=== PATIENT | male | born 1995 | race Caucasian/White ===

== ENCOUNTER 2016-10-23 13:26 | Emergency (ER) | payer OTHER ==
[2016-10-23 13:49] VITALS: RESP 18
[2016-10-23] MEDS ORDERED: SODIUM CHLORIDE 0.9% 1,000 ML IV STA (14:33)
--- NOTE | 2016-10-23 14:35 | ED ---
General Adult HPI - General Chief complaint: Abdominal Pain Stated complaint: Abd Pain Time Seen by Provider: 10/23/16 14:27 Source: patient, RN notes reviewed Mode of arrival: ambulatory Limitations: no limitations - History of Present Illness Initial comments: Patient 21-year-old male who presents emergency room today with a chief complaint of abdominal pain. He does admit that he felt some discomfort yesterday but increased discomfort today. He describes it as a "strange" type feeling to the top of his abdomen that radiates down. He states he reminds him of when he was seen once and he had elevated liver enzymes. He states at that time he had taken Tylenol and was drinking alcohol. Patient states he has not taken any Tylenol recent. He denies any recent drinking. He denies any other complaints or symptoms. Patient denies any recent fever, chills, shortness of breath, chest pain, back pain, nausea or vomiting, numbness or tingling, dysuria or hematuria, constipation or diarrhea, headaches or visual changes, or any other complaints. - Related Data Previous Rx's Medication Instructions Recorded Ondansetron Odt [Zofran ODT] 4 mg PO Q8HR PRN #20 tab 10/23/16 Allergies Allergy/AdvReac Type Severity Reaction Status Date / Time No Known Allergies Allergy Verified 10/23/16 14:53 Review of Systems ROS Statement: Those systems with pertinent positive or pertinent negative responses have been documented in the HPI. ROS Other: All systems not noted in ROS Statement are negative. Past Medical History Past Medical History: No Reported History Additional Past Medical History / Comment(s): Plantar fibroma History of Any Multi-Drug Resistant Organisms: None Reported Past Surgical History: Appendectomy, Orthopedic Surgery Additional Past Surgical History / Comment(s): testicular surgery Past Anesthesia/Blood Transfusion Reactions: No Reported Reaction Past Psychological History: Anxiety, Bipolar, Depression Smoking Status: Current every day smoker Past Alcohol Use History: Occasional Additional Past Alcohol Use History / Comment(s): Patient is a smoker one pack per day for 1 year. He states he drinks 2 beers per week. Past Drug Use History: Marijuana Additional Drug Use History / Comment(s): States "i used to drink alot and smoke marijuana but I dont anymore - Past Family History Father Additional Family Medical History / Comment(s): Father is alive at age 58 with history of kidney stones and low blood sugar Mother Family Medical History: Unable to Obtain Additional Family Medical History / Comment(s): Patient does not want to talk about his mother. Patient has 3 brothers and 4 sisters with no major medical problems. General Exam - General Exam Comments Initial Comments: General: The patient is awake and alert, in no distress, and does not appear acutely ill. Eye: Pupils are equal, round and reactive to light, extra-ocular movements are intact. No nystagmus. There is normal conjunctiva bilaterally. No signs of icterus. Ears, nose, mouth and throat: There are moist mucous membranes and no oral lesions. Neck: The neck is supple, there is no tenderness or JVD. Cardiovascular: There is a regular rate and rhythm. No murmur, rub or gallop is appreciated. Respiratory: Lungs are clear to auscultation, respirations are non-labored, breath sounds are equal. No wheezes, stridor, rales, or rhonchi. Gastrointestinal: Soft, non-distended, non-tender abdomen without masses or organomegaly noted. There is no rebound or guarding present. No CVA tenderness. Bowel sounds are unremarkable. Musculoskeletal: Normal ROM, no tenderness. Strength 5/5. Sensation intact. Pulses equal bilaterally 2+. Neurological: A&O x 3. CN II-XII intact, There are no obvious motor or sensory deficits. Coordination appears grossly intact. Speech is normal. Skin: Skin is warm and dry and no rashes or lesions are noted. Psychiatric: Cooperative, appropriate mood & affect, normal judgment. Limitations: no limitations Course Vital Signs 10/23/16 13:46 Temperature 98.0 F Pulse Rate 59 L Respiratory 18 Rate Blood Pressure 124/53 O2 Sat by Pulse 98 Oximetry Medical Decision Making - Medical Decision Making Patient reexamined at this time shows no signs of distress. Patient labs been reviewed and are unremarkable is resting comfortable in the stretcher with no complaints at this time. A be discharged home given a prescription for nausea to use for any symptoms. Advised return for any other concerns. - Lab Data Result diagrams: 10/23/16 15:03 10/23/16 15:03 Lab Results 10/23/16 10/23/16 10/23/16 Range/Units 15:03 15:03 15:26 WBC 6.6 (3.8-10.6) k/uL RBC 4.90 (4.30-5.90) m/uL Hgb 15.4 (13.0-17.5) gm/dL Hct 45.8 (39.0-53.0) % MCV 93.4 (80.0-100.0) fL MCH 31.4 (25.0-35.0) pg MCHC 33.6 (31.0-37.0) g/dL RDW 13.7 (11.5-15.5) % Plt Count 179 (150-450) k/uL Neutrophils % 58 % Lymphocytes % 31 % Monocytes % 6 % Eosinophils % 2 % Basophils % 1 % Neutrophils # 3.9 (1.3-7.7) k/uL Lymphocytes # 2.0 (1.0-4.8) k/uL Monocytes # 0.4 (0-1.0) k/uL Eosinophils # 0.2 (0-0.7) k/uL Basophils # 0.0 (0-0.2) k/uL Sodium 143 (137-145) mmol/L Potassium 4.3 (3.5-5.1) mmol/L Chloride 108 H (98-107) mmol/L Carbon Dioxide 25 (22-30) mmol/L Anion Gap 10 mmol/L BUN 18 (9-20) mg/dL Creatinine 0.76 (0.66-1.25) mg/dL Est GFR (MDRD) Af Amer >60 (>60 ml/min/1.73 sqM) Est GFR (MDRD) Non-Af >60 (>60 ml/min/1.73 sqM) Glucose 101 H (74-99) mg/dL Calcium 9.4 (8.4-10.2) mg/dL Total Bilirubin 0.6 (0.2-1.3) mg/dL AST 19 (17-59) U/L ALT 32 (21-72) U/L Alkaline Phosphatase 64 (38-126) U/L Total Protein 7.4 (6.3-8.2) g/dL Albumin 4.4 (3.5-5.0) g/dL Amylase 62 (30-110) U/L Lipase 30 (23-300) U/L Urine Color Yellow Urine Appearance Clear (Clear) Urine pH 6.5 (5.0-8.0) Ur Specific [place] 1.026 (1.001-1.035) Urine Protein Trace H (Negative) Urine Glucose (UA) Negative (Negative) Urine Ketones Negative (Negative) Urine Blood Negative (Negative) Urine Nitrite Negative (Negative) Urine Bilirubin Negative (Negative) Urine Urobilinogen <2.0 (<2.0) mg/dL Ur Leukocyte Esterase Negative (Negative) Disposition Clinical Impression: Abdominal pain Disposition: HOME SELF-CARE Condition: Poor Instructions: Abdominal Pain (ED) Additional Instructions: Please use medication as discussed. Please follow-up with family doctor in the next 2 days of symptoms have not improved. Please return to emergency room if the symptoms increase or worsen or for any other concerns. Prescriptions: Ondansetron Odt [Zofran ODT] 4 mg PO Q8HR PRN #20 tab PRN Reason: Nausea Referrals: None,Stated [Primary Care Provider] - 1-2 days Maria G Saavedra MD [STAFF PHYSICIAN] - 1-2 days Time of Disposition: 15:54
[2016-10-23 15:21] LABS: Basophils % (A) 1 %; CH 32.2; CHCM 34.6; Eosinophils # (A) 0.2 k/uL (0-0.7); Eosinophils % (A) 2 %; HCT 45.8 % (39.0-53.0); HDW 2.74; HGB 15.4 gm/dL (13.0-17.5); Luc # (Auto) 0.14; Luc % (Auto) 2; Lymphocytes % (A) 31 %; MCH 31.4 pg (25.0-35.0); MCHC 33.6 g/dL (31.0-37.0); MCV 93.4 fL (80.0-100.0); Mean Platelet Volume 8.3; Monocytes # (A) 0.4 k/uL (0-1.0); Monocytes % (A) 6 %; Neutrophils # (A) 3.9 k/uL (1.3-7.7); Neutrophils % (A) 58 %; RDW 13.7 % (11.5-15.5); WBC 6.6 k/uL (3.8-10.6); WBC (Perox) 6.33
[2016-10-23 15:34] LABS: ALT 32 U/L (21-72); AST 19 U/L (17-59); Alkaline Phosphatase 64 U/L (38-126); Amylase 62 U/L (30-110); Anion Gap 10 mmol/L; Blood Urea Nitrogen 18 mg/dL (9-20); Calcium 9.4 mg/dL (8.4-10.2); Carbon Dioxide 25 mmol/L (22-30); Chloride 108 mmol/L (98-107); Glucose 101 mg/dL (74-99); Non-African American GFR(MDRD) >60 (>60 ml/min/1.73 sqM); Potassium 4.3 mmol/L (3.5-5.1); Sodium 143 mmol/L (137-145); Total Bilirubin 0.6 mg/dL (0.2-1.3); Total Protein 7.4 g/dL (6.3-8.2)
[2016-10-23 15:50] LABS: Appearance,Urine Clear (Clear); Bilirubin,Urine Negative (Negative); Glucose,Urine (UA) Negative (Negative); Ketones,Urine Negative (Negative); Leukocyte Esterase,Urine Negative (Negative); Nitrite,Urine Negative (Negative); PH, Urine 6.5 (5.0-8.0); Protein,Urine Trace (Negative); Specific Gravity,Urine 1.026 (1.001-1.035); UA Billing (MACRO vs. MICRO) CHEM; Urobilinogen,Urine <2.0 mg/dL (<2.0)
[2016-10-23 16:17] VITALS: BP 137/65; PULSE 65; TEMP 98
== END 2016-10-23 16:18 | disposition home or self-care (01) ==
LOC: EC 13:26
DX: R10.9 Unspecified abdominal pain (principal); R11.0 Nausea; F17.200 Nicotine dependence, unspecified, uncomplicated; Z90.49 Acquired absence of other specified parts of digestive tract
CPT/HCPCS: 36415; 80053; 81003; 82150; 83690; 85025; 96360; 99283

== ENCOUNTER 2018-01-26 00:49 | Emergency (ER) | payer OTHER ==
[2018-01-26 00:55] VITALS: BP 128/77; PULSE 75; RESP 16; TEMP 98
[2018-01-26] MEDS ORDERED: PROPARACAINE 0.5% OPHTH DROPS 15 ML BTL BOTH EYES STA (01:10)
[2018-01-26] MEDS ORDERED: ERYTHROMYCIN 5 MG/GM OPHTH OINT 3.5 GM TUBE LEFT EYE STA (01:35)
--- NOTE | 2018-01-26 01:44 | ED ---
Eye Problem HPI - General Chief complaint: Eye Problems Stated complaint: Foreign body in eye Time Seen by Provider: 01/26/18 01:10 Source: patient, RN notes reviewed, old records reviewed Mode of arrival: ambulatory Limitations: no limitations - History of Present Illness Initial comments: Patient is a 23 year old male with metal foreign body within L eye. 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 He reports he noticed irriation while trying to sleep tonight. He has attemptoed to flush his eye. Patient has had his TDAP, denies any other complaint. - Related Data Previous Rx's Medication Instructions Recorded Ondansetron Odt [Zofran ODT] 4 mg PO Q8HR PRN #20 tab 10/23/16 Allergies Allergy/AdvReac Type Severity Reaction Status Date / Time No Known Allergies Allergy Verified 01/26/18 00:55 Review of Systems ROS Statement: Those systems with pertinent positive or pertinent negative responses have been documented in the HPI. ROS Other: All systems not noted in ROS Statement are negative. Past Medical History Past Medical History: No Reported History Additional Past Medical History / Comment(s): Plantar fibroma History of Any Multi-Drug Resistant Organisms: None Reported Past Surgical History: Appendectomy, Orthopedic Surgery Additional Past Surgical History / Comment(s): testicular surgery Past Anesthesia/Blood Transfusion Reactions: No Reported Reaction Past Psychological History: Anxiety, Bipolar, Depression Smoking Status: Current some day smoker Past Alcohol Use History: Occasional Past Drug Use History: Marijuana - Past Family History Father Additional Family Medical History / Comment(s): Father is alive at age 58 with history of kidney stones and low blood sugar Mother Family Medical History: Unable to Obtain Additional Family Medical History / Comment(s): Patient does not want to talk about his mother. Patient has 3 brothers and 4 sisters with no major medical problems. General Exam - General Exam Comments Initial Comments: Well appearing 23 year old male, no distress. Limitations: no limitations General appearance: alert, in no apparent distress Head exam: Present: atraumatic, normocephalic, normal inspection Eye exam: Present: PERRL, EOMI, conjunctival injection (L eye, evidence of metalic foreign body at 11 oclock position. ). Absent: normal appearance, scleral icterus, periorbital swelling ENT exam: Present: normal exam, mucous membranes moist Neck exam: Present: normal inspection. Absent: tenderness, meningismus, lymphadenopathy Respiratory exam: Present: normal lung sounds bilaterally. Absent: respiratory distress, wheezes, rales, rhonchi, stridor Cardiovascular Exam: Present: regular rate, normal rhythm, normal heart sounds. Absent: systolic murmur, diastolic murmur, rubs, gallop, clicks GI/Abdominal exam: Present: soft, normal bowel sounds. Absent: distended, tenderness, guarding, rebound, rigid Extremities exam: Present: normal inspection, full ROM, normal capillary refill. Absent: tenderness, pedal edema, joint swelling, calf tenderness Back exam: Present: normal inspection Neurological exam: Present: alert, oriented X3, CN II-XII intact Psychiatric exam: Present: normal affect, normal mood Course Vital Signs 01/26/18 00:53 Temperature 98 F Pulse Rate 75 Respiratory 16 Rate Blood Pressure 128/77 O2 Sat by Pulse 98 Oximetry Medical Decision Making - Medical Decision Making 23 year old male presetns with metal foreign body in L eye. Visual acuity intact. Using proparicaine, Fluorescein and Leon lamp, foreign body is easily identified at 11 o'clock position. I used an sharee brush and removed foreign body and surrounding rust ring. Discussed using antibiotic ointment for eye, and ophthalmology referral. All question answered and return parameter discussed. Disposition Clinical Impression: Foreign body of left eye Disposition: HOME SELF-CARE Condition: Good Instructions: Eye Foreign Body (ED) Additional Instructions: Patient is advised to put the eye ointment and every 4 hours in the eye. Return to emergency department if any alarming signs or symptoms occur. Is patient prescribed a controlled substance at d/c from ED?: No Referrals: None,Stated [Primary Care Provider] - 1-2 days Yazan Bae MD [STAFF PHYSICIAN] - 1-2 days Time of Disposition: 01:43
== END 2018-01-26 02:02 | disposition home or self-care (01) ==
LOC: EC 00:49
DX: T15.92XA Foreign body on external eye, part unspecified, left eye, initial encounter (principal); F17.200 Nicotine dependence, unspecified, uncomplicated
CPT/HCPCS: 65220; 99283

== ENCOUNTER 2019-11-30 16:29 | Emergency (ER) | payer OTHER ==
[2019-11-30] MEDS ORDERED: SODIUM CHLORIDE 0.9% 1,000 ML IV STA (16:37)
--- NOTE | 2019-11-30 16:37 | ED ---
Overdose HPI - General Chief Complaint: Overdose Stated Complaint: overdose Source: patient, RN notes reviewed, old records reviewed Mode of arrival: ambulatory Limitations: no limitations - History of Present Illness Initial Comments: This is a 24-year-old male presenting overdose, patient states he was drinking some alcohol 2 days ago and took a Tylenol overdose he believes 10 pills. Unsure of milligrams. At this time patient aside from depression still feeling suicidal denying any complaints no GI upset no nausea vomiting. No other complaints no fevers or diarrhea MD Complaint: intentional overdose -: days(s) Intent: suicide attempt How Overdose Was Discovered: other (Presents to emergency room for evaluation now) Context: Intentional Overdose: drug/ETOH problems Associated Symptoms: depression Treatments Prior to Arrival: none - Related Data Home Medications Medication Instructions Recorded Confirmed No Known Home Medications 11/30/19 11/30/19 Allergies Allergy/AdvReac Type Severity Reaction Status Date / Time No Known Allergies Allergy Verified 11/30/19 18:13 Review of Systems ROS Statement: Those systems with pertinent positive or pertinent negative responses have been documented in the HPI. ROS Other: All systems not noted in ROS Statement are negative. Past Medical History Past Medical History: No Reported History Additional Past Medical History / Comment(s): Plantar fibroma History of Any Multi-Drug Resistant Organisms: None Reported Past Surgical History: Appendectomy, Orthopedic Surgery Additional Past Surgical History / Comment(s): testicular surgery Past Anesthesia/Blood Transfusion Reactions: No Reported Reaction Past Psychological History: Anxiety, Bipolar, Depression Smoking Status: Current every day smoker Past Alcohol Use History: Occasional Past Drug Use History: Marijuana - Past Family History Father Additional Family Medical History / Comment(s): Father is alive at age 58 with history of kidney stones and low blood sugar Mother Family Medical History: Unable to Obtain Additional Family Medical History / Comment(s): Patient does not want to talk about his mother. Patient has 3 brothers and 4 sisters with no major medical pr oblems. General Exam Limitations: no limitations General appearance: alert, in no apparent distress Head exam: Present: atraumatic, normocephalic, normal inspection Eye exam: Present: normal appearance, PERRL, EOMI. Absent: scleral icterus, conjunctival injection, periorbital swelling ENT exam: Present: normal exam, mucous membranes moist Neck exam: Present: normal inspection. Absent: tenderness, meningismus, lymphadenopathy Respiratory exam: Present: normal lung sounds bilaterally. Absent: respiratory distress, wheezes, rales, rhonchi, stridor Cardiovascular Exam: Present: regular rate, normal rhythm, normal heart sounds. Absent: systolic murmur, diastolic murmur, rubs, gallop, clicks GI/Abdominal exam: Present: soft, normal bowel sounds. Absent: distended, tenderness, guarding, rebound, rigid Extremities exam: Present: normal inspection, full ROM, normal capillary refill. Absent: tenderness, pedal edema, joint swelling, calf tenderness Back exam: Present: normal inspection Neurological exam: Present: alert, oriented X3, CN II-XII intact Psychiatric exam: Present: normal affect, normal mood Skin exam: Present: warm, dry, intact, normal color. Absent: rash Course Vital Signs 11/30/19 11/30/19 11/30/19 16:32 19:55 22:17 Temperature 97.9 F 98.2 F 98.1 F Pulse Rate 76 68 60 Respiratory 18 18 16 Rate Blood Pressure 120/85 142/77 131/78 O2 Sat by Pulse 97 98 99 Oximetry - Reevaluation(s) Reevaluation #1: 11/30/19 18:02 Medical records reviewed Medical Decision Making - Medical Decision Making Erwin male DF for evaluation of psychiatric illness and possible intentional versus accidental overdose. No acute overdose found here in the ER, patient not currently homicidal and suicidal will follow-up on an outpatient basis with [facility] - Lab Data Result diagrams: 11/30/19 17:08 11/30/19 17:08 Lab Results 11/30/19 11/30/19 11/30/19 Range/Units 16:58 17:08 17:08 WBC 9.6 (3.8-10.6) k/uL RBC 5.03 (4.30-5.90) m/uL Hgb 15.8 (13.0-17.5) gm/dL Hct 46.4 (39.0-53.0) % MCV 92.2 (80.0-100.0) fL MCH 31.4 (25.0-35.0) pg MCHC 34.1 (31.0-37.0) g/dL RDW 13.3 (11.5-15.5) % Plt Count 218 (150-450) k/uL Neutrophils % 68 % Lymphocytes % 25 % Monocytes % 4 % Eosinophils % 2 % Basophils % 0 % Neutrophils # 6.5 (1.3-7.7) k/uL Lymphocytes # 2.4 (1.0-4.8) k/uL Monocytes # 0.4 (0-1.0) k/uL Eosinophils # 0.2 (0-0.7) k/uL Basophils # 0.0 (0-0.2) k/uL PT (9.0-12.0) sec INR (<1.2) Sodium 141 (137-145) mmol/L Potassium 4.6 (3.5-5.1) mmol/L Chloride 109 H (98-107) mmol/L Carbon Dioxide 24 (22-30) mmol/L Anion Gap 8 mmol/L BUN 12 (9-20) mg/dL Creatinine 0.70 (0.66-1.25) mg/dL Est GFR (CKD-EPI)AfAm >90 (>60 ml/min/1.73 sqM) Est GFR (CKD-EPI)NonAf >90 (>60 ml/min/1.73 sqM) Glucose 95 (74-99) mg/dL Plasma Lactic Acid Karl (0.7-2.0) mmol/L Calcium 9.7 (8.4-10.2) mg/dL Total Bilirubin 1.0 (0.2-1.3) mg/dL AST 29 (17-59) U/L ALT 35 (4-49) U/L Alkaline Phosphatase 67 (38-126) U/L Creatine Kinase 40 L (55-170) U/L Total Protein 7.1 (6.3-8.2) g/dL Albumin 4.5 (3.5-5.0) g/dL Salicylates <1.0 mg/dL Urine Opiates Screen Not Detected (NotDetected) Ur Oxycodone Screen Not Detected (NotDetected) Urine Methadone Screen Not Detected (NotDetected) Ur Propoxyphene Screen Not Detected (NotDetected) Acetaminophen <10.0 ug/mL Ur Barbiturates Screen Not Detected (NotDetected) U Tricyclic Antidepress Not Detected (NotDetected) Ur Phencyclidine Scrn Not Detected (NotDetected) Ur Amphetamines Screen Not Detected (NotDetected) U Methamphetamines Scrn Not Detected (NotDetected) U Benzodiazepines Scrn Not Detected (NotDetected) Urine Cocaine Screen Not Detected (NotDetected) U Marijuana (THC) Screen Detected H (NotDetected) Serum Alcohol <10 mg/dL 11/30/19 11/30/19 Range/Units 17:08 18:43 WBC (3.8-10.6) k/uL RBC (4.30-5.90) m/uL Hgb (13.0-17.5) gm/dL Hct (39.0-53.0) % MCV (80.0-100.0) fL MCH (25.0-35.0) pg MCHC (31.0-37.0) g/dL RDW (11.5-15.5) % Plt Count (150-450) k/uL Neutrophils % % Lymphocytes % % Monocytes % % Eosinophils % % Basophils % % Neutrophils # (1.3-7.7) k/uL Lymphocytes # (1.0-4.8) k/uL Monocytes # (0-1.0) k/uL Eosinophils # (0-0.7) k/uL Basophils # (0-0.2) k/uL PT 11.3 (9.0-12.0) sec INR 1.1 (<1.2) Sodium (137-145) mmol/L Potassium (3.5-5.1) mmol/L Chloride (98-107) mmol/L Carbon Dioxide (22-30) mmol/L Anion Gap mmol/L BUN (9-20) mg/dL Creatinine (0.66-1.25) mg/dL Est GFR (CKD-EPI)AfAm (>60 ml/min/1.73 sqM) Est GFR (CKD-EPI)NonAf (>60 ml/min/1.73 sqM) Glucose (74-99) mg/dL Plasma Lactic Acid Karl 0.7 (0.7-2.0) mmol/L Calcium (8.4-10.2) mg/dL Total Bilirubin (0.2-1.3) mg/dL AST (17-59) U/L ALT (4-49) U/L Alkaline Phosphatase (38-126) U/L Creatine Kinase (55-170) U/L Total Protein (6.3-8.2) g/dL Albumin (3.5-5.0) g/dL Salicylates mg/dL Urine Opiates Screen (NotDetected) Ur Oxycodone Screen (NotDetected) Urine Methadone Screen (NotDetected) Ur Propoxyphene Screen (NotDetected) Acetaminophen ug/mL Ur Barbiturates Screen (NotDetected) U Tricyclic Antidepress (NotDetected) Ur Phencyclidine Scrn (NotDetected) Ur Amphetamines Screen (NotDetected) U Methamphetamines Scrn (NotDetected) U Benzodiazepines Scrn (NotDetected) Urine Cocaine Screen (NotDetected) U Marijuana (THC) Screen (NotDetected) Serum Alcohol mg/dL - EKG Data -: EKG Interpreted by Me (EKG shows sinus rhythm 71 [place] 134 QRS 86 QTC 406) Disposition Clinical Impression: Accidental drug overdose Disposition: HOME SELF-CARE Condition: Good Instructions (If sedation given, give patient instructions): Adult Overdose (ED) Is patient prescribed a controlled substance at d/c from ED?: No Referrals: None,Stated [Primary Care Provider] - 1-2 days
[2019-11-30 17:12] LABS: Basophils % (A) 0 %; Eosinophils # (A) 0.2 k/uL (0-0.7); Eosinophils % (A) 2 %; HCT 46.4 % (39.0-53.0); HGB 15.8 gm/dL (13.0-17.5); Lymphocytes # (A) 2.4 k/uL (1.0-4.8); Lymphocytes % (A) 25 %; MCH 31.4 pg (25.0-35.0); MCHC 34.1 g/dL (31.0-37.0); MCV 92.2 fL (80.0-100.0); Monocytes # (A) 0.4 k/uL (0-1.0); Monocytes % (A) 4 %; Neutrophils # (A) 6.5 k/uL (1.3-7.7); Neutrophils % (A) 68 %; Platelet Count 218 k/uL (150-450); RBC 5.03 m/uL (4.30-5.90); RDW 13.3 % (11.5-15.5); WBC 9.6 k/uL (3.8-10.6)
[2019-11-30 17:20] LABS: Amphetamine Screen,Urine Not Detected (NotDetected); Barbiturate Screen,Urine Not Detected (NotDetected); Benzodiazepines Screen,Urine Not Detected (NotDetected); Cocaine Screen,Urine Not Detected (NotDetected); Methadone Screen, Urine Not Detected (NotDetected); Opiate Screen,Urine Not Detected (NotDetected); Oxycodone Screen, Urine Not Detected (NotDetected); Phencyclidine Screen,Urine Not Detected (NotDetected); Tricyclic Antidepressant,Urine Not Detected (NotDetected); Urn Cannabinoid Scrn Detected (NotDetected)
[2019-11-30 17:32] LABS: ALT 35 U/L (4-49); AST 29 U/L (17-59); Acetaminophen <10.0 ug/mL; African American GFR (CKD) >90 (>60 ml/min/1.73 sqM); Albumin 4.5 g/dL (3.5-5.0); Alcohol <10 mg/dL; Alkaline Phosphatase 67 U/L (38-126); Anion Gap 8 mmol/L; Blood Urea Nitrogen 12 mg/dL (9-20); Calcium 9.7 mg/dL (8.4-10.2); Carbon Dioxide 24 mmol/L (22-30); Chloride 109 mmol/L (98-107); Creatine Kinase 40 U/L (55-170); Glucose 95 mg/dL (74-99); Non-African American GFR(CKD) >90 (>60 ml/min/1.73 sqM); Potassium 4.6 mmol/L (3.5-5.1); Salicylate <1.0 mg/dL; Sodium 141 mmol/L (137-145); Total Protein 7.1 g/dL (6.3-8.2)
[2019-11-30 18:55] LABS: INR 1.1 (<1.2); Prothrombin Time 11.3 sec (9.0-12.0)
[2019-11-30 22:25] VITALS: BP 131/78; PULSE 60; RESP 16; TEMP 98.1
== END 2019-11-30 22:25 | disposition home or self-care (01) ==
LOC: EC 16:29
DX: T39.1X1A Poisoning by 4-Aminophenol derivatives, accidental (unintentional), initial encounter (principal); F17.200 Nicotine dependence, unspecified, uncomplicated
CPT/HCPCS: 36415; 80053; 80306; 80320; 80329; 82075; 82550; 83520; 83605; 85025; 85610; 93005; 96360; 96361; 99285

== ENCOUNTER 2020-12-29 02:54 | Emergency (ER) | payer OTHER ==
[2020-12-29] MEDS ORDERED: SODIUM CHLORIDE 0.9% 1,000 ML IV STA (03:08)
[2020-12-29] MEDS ORDERED: IPRATROPIUM-ALBUTEROL 3 ML NEB INHALATION STA (03:08)
--- NOTE | 2020-12-29 03:11 | ED ---
SOB HPI - General Chief Complaint: Shortness of Breath Stated Complaint: SOB Time Seen by Provider: 12/29/20 02:55 Source: patient Mode of arrival: ambulatory Limitations: no limitations - Related Data Previous Rx's Medication Instructions Recorded Albuterol Sulfate [Proair Hfa] 1 - 2 puff INHALATION Q4H PRN #1 12/29/20 inhaler Allergies Allergy/AdvReac Type Severity Reaction Status Date / Time No Known Allergies Allergy Verified 12/29/20 03:00 Review of Systems ROS Statement: Those systems with pertinent positive or pertinent negative responses have been documented in the HPI. ROS Other: All systems not noted in ROS Statement are negative. Past Medical History Past Medical History: No Reported History Additional Past Medical History / Comment(s): Plantar fibroma History of Any Multi-Drug Resistant Organisms: None Reported Past Surgical History: Appendectomy, Orthopedic Surgery Additional Past Surgical History / Comment(s): testicular surgery Past Anesthesia/Blood Transfusion Reactions: No Reported Reaction Past Psychological History: Anxiety, Bipolar, Depression Smoking Status: Current every day smoker, Vaper Past Alcohol Use History: Occasional Past Drug Use History: Marijuana - Past Family History Father Additional Family Medical History / Comment(s): Father is alive at age 58 with history of kidney stones and low blood sugar Mother Family Medical History: Unable to Obtain Additional Family Medical History / Comment(s): Patient does not want to talk about his mother. Patient has 3 brothers and 4 sisters with no major medical problems. General Exam Limitations: no limitations Course Vital Signs 12/29/20 12/29/20 12/29/20 02:55 03:13 03:24 Temperature 97.7 F Pulse Rate 72 74 88 Respiratory 36 H Rate Blood Pressure 132/88 O2 Sat by Pulse 92 L Oximetry 12/29/20 04:02 Temperature 97.6 F Pulse Rate 86 Respiratory 16 Rate Blood Pressure 119/78 O2 Sat by Pulse 97 Oximetry Medical Decision Making - Lab Data Result diagrams: 12/29/20 03:26 12/29/20 03:26 Lab Results 12/29/20 12/29/20 12/29/20 Range/Units 03:26 03:26 03:26 WBC 8.3 (3.8-10.6) k/uL RBC 5.11 (4.30-5.90) m/uL Hgb 15.6 (13.0-17.5) gm/dL Hct 46.9 (39.0-53.0) % MCV 91.8 (80.0-100.0) fL MCH 30.5 (25.0-35.0) pg MCHC 33.3 (31.0-37.0) g/dL RDW 14.3 (11.5-15.5) % Plt Count 188 (150-450) k/uL MPV 8.4 Neutrophils % 42 % Lymphocytes % 43 % Monocytes % 5 % Eosinophils % 7 % Basophils % 1 % Neutrophils # 3.5 (1.3-7.7) k/uL Lymphocytes # 3.6 (1.0-4.8) k/uL Monocytes # 0.4 (0-1.0) k/uL Eosinophils # 0.6 (0-0.7) k/uL Basophils # 0.1 (0-0.2) k/uL Poikilocytosis Slight PT 9.9 (9.0-12.0) sec INR 0.9 (<1.2) APTT 22.2 (22.0-30.0) sec D-Dimer 0.55 (<0.60) mg/L FEU Sodium 142 (137-145) mmol/L Potassium 3.8 (3.5-5.1) mmol/L Chloride 110 H (98-107) mmol/L Carbon Dioxide 23 (22-30) mmol/L Anion Gap 9 mmol/L BUN 20 (9-20) mg/dL Creatinine 0.71 (0.66-1.25) mg/dL Est GFR (CKD-EPI)AfAm >90 (>60 ml/min/1.73 sqM) Est GFR (CKD-EPI)NonAf >90 (>60 ml/min/1.73 sqM) Glucose 124 H (74-99) mg/dL Calcium 9.9 (8.4-10.2) mg/dL Magnesium 1.8 (1.6-2.3) mg/dL Total Bilirubin 0.3 (0.2-1.3) mg/dL AST 21 (17-59) U/L ALT 15 (4-49) U/L Alkaline Phosphatase 61 (38-126) U/L Troponin I (0.000-0.034) ng/mL C-Reactive Protein 0.9 (<1.0) mg/dL NT-Pro-B Natriuret Pep pg/mL Total Protein 6.8 (6.3-8.2) g/dL Albumin 4.3 (3.5-5.0) g/dL 12/29/20 12/29/20 Range/Units 03:26 03:26 WBC (3.8-10.6) k/uL RBC (4.30-5.90) m/uL Hgb (13.0-17.5) gm/dL Hct (39.0-53.0) % MCV (80.0-100.0) fL MCH (25.0-35.0) pg MCHC (31.0-37.0) g/dL RDW (11.5-15.5) % Plt Count (150-450) k/uL MPV Neutrophils % % Lymphocytes % % Monocytes % % Eosinophils % % Basophils % % Neutrophils # (1.3-7.7) k/uL Lymphocytes # (1.0-4.8) k/uL Monocytes # (0-1.0) k/uL Eosinophils # (0-0.7) k/uL Basophils # (0-0.2) k/uL Poikilocytosis PT (9.0-12.0) sec INR (<1.2) APTT (22.0-30.0) sec D-Dimer (<0.60) mg/L FEU Sodium (137-145) mmol/L Potassium (3.5-5.1) mmol/L Chloride (98-107) mmol/L Carbon Dioxide (22-30) mmol/L Anion Gap mmol/L BUN (9-20) mg/dL Creatinine (0.66-1.25) mg/dL Est GFR (CKD-EPI)AfAm (>60 ml/min/1.73 sqM) Est GFR (CKD-EPI)NonAf (>60 ml/min/1.73 sqM) Glucose (74-99) mg/dL Calcium (8.4-10.2) mg/dL Magnesium (1.6-2.3) mg/dL Total Bilirubin (0.2-1.3) mg/dL AST (17-59) U/L ALT (4-49) U/L Alkaline Phosphatase (38-126) U/L Troponin I <0.012 (0.000-0.034) ng/mL C-Reactive Protein (<1.0) mg/dL NT-Pro-B Natriuret Pep 95 pg/mL Total Protein (6.3-8.2) g/dL Albumin (3.5-5.0) g/dL - EKG Data -: EKG Interpreted by Me (EKG shows sinus rhythm of 94, [place] 140 QRS 88 QTc 457) Disposition Clinical Impression: Bronchospasm with bronchitis, acute Disposition: HOME SELF-CARE Condition: Good Instructions (If sedation given, give patient instructions): Bronchospasm (ED) Prescriptions: Albuterol Sulfate [Proair Hfa] 1 - 2 puff INHALATION Q4H PRN #1 inhaler PRN Reason: Shortness Of Breath Is patient prescribed a controlled substance at d/c from ED?: No Referrals: None,Stated [Primary Care Provider] - 1-2 days
[2020-12-29 03:46] LABS: Basophils # (A) 0.1 k/uL (0-0.2); Basophils % (A) 1 %; Eosinophils # (A) 0.6 k/uL (0-0.7); Eosinophils % (A) 7 %; HCT 46.9 % (39.0-53.0); HGB 15.6 gm/dL (13.0-17.5); Lymphocytes # (A) 3.6 k/uL (1.0-4.8); Lymphocytes % (A) 43 %; MCH 30.5 pg (25.0-35.0); MCHC 33.3 g/dL (31.0-37.0); MCV 91.8 fL (80.0-100.0); Mean Platelet Volume 8.4; Monocytes # (A) 0.4 k/uL (0-1.0); Monocytes % (A) 5 %; Neutrophils # (A) 3.5 k/uL (1.3-7.7); Neutrophils % (A) 42 %; Platelet Count 188 k/uL (150-450); Poikilocytosis Slight; RBC 5.11 m/uL (4.30-5.90); RDW 14.3 % (11.5-15.5); WBC 8.3 k/uL (3.8-10.6)
[2020-12-29 04:00] LABS: ALT 15 U/L (4-49); AST 21 U/L (17-59); African American GFR (CKD) >90 (>60 ml/min/1.73 sqM); Albumin 4.3 g/dL (3.5-5.0); Alkaline Phosphatase 61 U/L (38-126); Anion Gap 9 mmol/L; Blood Urea Nitrogen 20 mg/dL (9-20); Calcium 9.9 mg/dL (8.4-10.2); Carbon Dioxide 23 mmol/L (22-30); Chloride 110 mmol/L (98-107); Glucose 124 mg/dL (74-99); Magnesium 1.8 mg/dL (1.6-2.3); Non-African American GFR(CKD) >90 (>60 ml/min/1.73 sqM); Potassium 3.8 mmol/L (3.5-5.1); Sodium 142 mmol/L (137-145); Total Bilirubin 0.3 mg/dL (0.2-1.3); Total Protein 6.8 g/dL (6.3-8.2)
[2020-12-29 04:14] VITALS: TEMP 97.6
[2020-12-29 04:14] LABS: INR 0.9 (<1.2); Partial Thromboplastin Time 22.2 sec (22.0-30.0); Prothrombin Time 9.9 sec (9.0-12.0)
[2020-12-29] MEDS ORDERED: SODIUM CHLORIDE 0.9% 500 ML 500 ML IV STA (04:25)
--- NOTE | 2020-12-29 04:27 | XR ---
EXAMINATION TYPE: XR chest 1V portable DATE OF EXAM: 12/29/2020 COMPARISON: NONE HISTORY: Chest pain TECHNIQUE: Single view FINDINGS: Heart and mediastinum are normal. Lungs are clear. Diaphragm is normal. Bony thorax is inta ct. There are chest leads. IMPRESSION: Normal chest. Normal heart.
[2020-12-29 04:29] LABS: C Reactive Protein 0.9 mg/dL (<1.0)
[2020-12-29] MEDS ORDERED: DEXAMETHASONE SOD PHOSPHATE 10 MG/ML 1 ML VIAL IV STA (04:57)
[2020-12-29] MEDS ORDERED: KETOROLAC 15 MG/ML 1 ML VIAL IVP STA (04:57)
--- NOTE | 2020-12-29 05:13 | CT ---
EXAMINATION TYPE: CT angio chest DATE OF EXAM: 12/29/2020 COMPARISON: None HISTORY: SOB. no prior on PACS CT DLP: 318.4 mGycm Automated exposure control for dose reduction was used. CONTRAST: Performed with IV Contrast, patient injected with 60ml mL of Isovue 370. There are 3-D post processed images. The lungs are clear of infiltrate. There is no evidence of pleural effusion. There is no evidence of a pulmonary mass. There is no mediastinal adenopathy. There are no hilar masses. Thoracic aorta appears intact. There i s no aneurysm or dissection. There is normal contrast opacification of the pulmonary arteries. There are no filling defects. Upper abdominal soft tissues are intact. Heart size is normal. There is no pericardial effusion. The thoracic vertebra have normal alignment. Sternum is intact. Posterior elements are intact. There is no thoracic paraspinal mass. The ribs appear intact. IMPRESSION: Normal exam. No evidence of pulmonary embolism.
[2020-12-29 05:51] VITALS: BP 115/72; PULSE 68; RESP 18
== END 2020-12-29 05:47 | disposition home or self-care (01) ==
LOC: EC 02:54
DX: J20.9 Acute bronchitis, unspecified (principal); F17.290 Nicotine dependence, other tobacco product, uncomplicated; F12.90 Cannabis use, unspecified, uncomplicated
CPT/HCPCS: 36415; 94640; 93005; 85379; 83880; 80053; 83735; 84484; 85025; 85610; 85730; 86140; 71045; 71275; 96374; 96375; 96361; 99284; J1100; J1885; Q9967

== ENCOUNTER 2021-12-17 13:56 | Emergency (ER) | payer OTHER ==
[2021-12-17 14:51] VITALS: BP 128/85; PULSE 75; RESP 18; TEMP 98.9
--- NOTE | 2021-12-17 15:11 | XR ---
EXAMINATION TYPE: XR hand complete 3 views RT DATE OF EXAM: 12/17/2021 COMPARISON: NONE HISTORY: 26-year-old male right hand pain after laceration near first metacarpal TECHNIQUE: 3 views FINDINGS: There is some soft tissue swelling at the first webspace. No retained radiopaque foreign body seen. N o acute fracture, subluxation, dislocation. IMPRESSION: No acute osseous abnormality seen.
[2021-12-17] MEDS ORDERED: LIDOCAINE 1% INJ 10MG/ML (5 ML VIAL-PF) SQ ONE (16:26)
[2021-12-17] MEDS ORDERED: DIPH,PERTUS(ACELL)TETVAC-LF 0.5 ML VIAL IM ONE (16:26)
--- NOTE | 2021-12-17 16:47 | ED ---
Wound/Laceration HPI - General Chief Complaint: Wound/Laceration Stated Complaint: Rt Hand Lac Time Seen by Provider: 12/17/21 16:17 Source: patient, RN notes reviewed Mode of arrival: ambulatory Limitations: no limitations - History of Present Illness Initial Comments: This is a 26-year-old male who presents to the emergency department for a laceration to the right thumb. 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 Unsure when his last tetanus vaccine was. Denies any fevers, chills, sore throat, cough, dyspnea, chest pain, palpitations, abdominal pain, nausea, vomiting, diarrhea, back pain, or headaches. Location: other (right thumb) Place: work Patient Tetanus UTD: No Context: accidental Treatments Prior to Arrival: bandage - Related Data Previous Rx's Medication Instructions Recorded Albuterol Sulfate [Proair Hfa] 1 - 2 puff INHALATION Q4H PRN #1 12/29/20 inhaler Cephalexin [Keflex] 500 mg PO Q8HR 5 Days #15 cap 12/17/21 Allergies Allergy/AdvReac Type Severity Reaction Status Date / Time No Known Allergies Allergy Verified 12/17/21 14:51 Review of Systems ROS Statement: Those systems with pertinent positive or pertinent negative responses have been documented in the HPI. ROS Other: All systems not noted in ROS Statement are negative. Past Medical History Past Medical History: No Reported History Additional Past Medical History / Comment(s): Plantar fibroma History of Any Multi-Drug Resistant Organisms: None Reported Past Surgical History: Appendectomy, Orthopedic Surgery Additional Past Surgical History / Comment(s): testicular surgery Past Anesthesia/Blood Transfusion Reactions: No Reported Reaction Past Psychological History: Anxiety, Bipolar, Depression Smoking Status: Current every day smoker, Vaper Past Alcohol Use History: Occasional Past Drug Use History: Marijuana - Past Family History Father Additional Family Medical History / Comment(s): Father is alive at age 58 with history of kidney stones and low blood sugar Mother Family Medical History: Unable to Obtain Additional Family Medical History / Comment(s): Patient does not want to talk about his mother. Patient has 3 brothers and 4 sisters with no major medical problems. General Exam Limitations: no limitations General appearance: alert, in no apparent distress Head exam: Present: atraumatic, normocephalic, normal inspection Respiratory exam: Present: normal lung sounds bilaterally. Absent: respiratory distress, wheezes, rales, rhonchi, stridor Cardiovascular Exam: Present: regular rate, normal rhythm, normal heart sounds. Absent: systolic murmur, diastolic murmur, rubs, gallop, clicks Neurological exam: Present: alert, oriented X3, CN II-XII intact Psychiatric exam: Present: normal affect, normal mood Skin exam: Present: other (3 cm laceration at the base of the dorsal aspect of the right thumb. Visible subcutaneous tissue and minor active bleeding.) Course Vital Signs 12/17/21 14:48 Temperature 98.9 F Pulse Rate 75 Respiratory 18 Rate Blood Pressure 128/85 O2 Sat by Pulse 100 Oximetry Procedures - Laceration Laceration #1 Consent Obtained: verbal consent Indication: laceration Site: other (right thumb) Size (cm): 3 Description: linear Depth: simple, single layer Anesthetic Used: lidocaine 1% Anesthesia Technique: local infiltration Amount (mls): 2 Type of Sutures: nylon Size of Sutures: 5-0 Number of Sutures: 3 Technique: simple, interrupted Medical Decision Making - Medical Decision Making This is a 26-year-old male who presents to the emergency department for a laceration to the right thumb. X-ray was obtained revealing no acute abnormalities or foreign bodies. This was repaired with sutures. Patient's tetanus status was updated. Prescription for Keflex sent to the pharmacy, as this was a dirty injury with metal. Advised he alternate with Tylenol and Ibuprofen as needed for pain relief. He is instructed to return in 7-10 days for suture removal. Return precautions reviewed in depth, the patient is instructed to return to the emergency department with any new, worsening, or concerning symptoms. Patient verbalized understanding. This case was discussed in detail with the attending ED physician. Presentation, findings, and treatment plan discussed in detail as well. - Radiology Data Radiology results: report reviewed, image reviewed Disposition Clinical Impression: Laceration Disposition: HOME SELF-CARE Instructions (If sedation given, give patient instructions): Care For Your Stitches (ED) Additional Instructions: Return to the emergency department with any new, worsening, or concerning symptoms and in 7-10 days for removal of your stitches. Alternate with Tylenol and ibuprofen as needed for pain relief. Take the antibiotic as prescribed for 5 days. Prescriptions: Cephalexin [Keflex] 500 mg PO Q8HR 5 Days #15 cap Is patient prescribed a controlled substance at d/c from ED?: No Referrals: None,Stated [Primary Care Provider] - 1-2 days
== END 2021-12-17 17:29 | disposition home or self-care (01) ==
LOC: EC 13:56
DX: S61.011A Laceration without foreign body of right thumb without damage to nail, initial encounter (principal); F17.209 Nicotine dependence, unspecified, with unspecified nicotine-induced disorders; Z23 Encounter for immunization; W20.8XXA Other cause of strike by thrown, projected or falling object, initial encounter; Y93.E5 Activity, floor mopping and cleaning
CPT/HCPCS: 73130; 90715; 12002; 99283; 90471; J2001

== ENCOUNTER 2022-01-21 09:25 | Emergency (ER) | payer OTHER ==
[2022-01-21 09:42] VITALS: BP 120/79; PULSE 75; RESP 20; TEMP 98
--- NOTE | 2022-01-21 11:18 | ED ---
Extremity Problem HPI - General Chief complaint: Extremity Problem,Nontraumatic Stated complaint: Wrist pain Time Seen by Provider: 01/21/22 10:28 Source: patient, RN notes reviewed Mode of arrival: ambulatory Limitations: no limitations - History of Present Illness Initial comments: 27-year-old male presents emergency Department chief complaint right wrist pain. Patient states he has pain by on aspect. 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 Denies any trauma. He states when he supinates his hand he has increasing pain no paresthesias. He states the shooting type pain up his arm. No chest pain or shortness breath no neck pain no headache no dizziness no focal weakness. - Related Data Previous Rx's Medication Instructions Recorded Albuterol Sulfate [Proair Hfa] 1 - 2 puff INHALATION Q4H PRN #1 12/29/20 inhaler Cephalexin [Keflex] 500 mg PO Q8HR 5 Days #15 cap 12/17/21 Ibuprofen [Motrin] 600 mg PO Q8HR PRN #20 tab 01/21/22 Allergies Allergy/AdvReac Type Severity Reaction Status Date / Time No Known Allergies Allergy Verified 01/21/22 09:42 Review of Systems ROS Statement: Those systems with pertinent positive or pertinent negative responses have been documented in the HPI. ROS Other: All systems not noted in ROS Statement are negative. Past Medical History Past Medical History: No Reported History Additional Past Medical History / Comment(s): Plantar fibroma History of Any Multi-Drug Resistant Organisms: None Reported Past Surgical History: Appendectomy, Orthopedic Surgery Additional Past Surgical History / Comment(s): testicular surgery Past Anesthesia/Blood Transfusion Reactions: No Reported Reaction Past Psychological History: Anxiety, Bipolar, Depression Smoking Status: Current every day smoker, Vaper Past Alcohol Use History: Occasional Past Drug Use History: Marijuana - Past Family History Father Additional Family Medical History / Comment(s): Father is alive at age 58 with history of kidney stones and low blood sugar Mother Family Medical History: Unable to Obtain Additional Family Medical History / Comment(s): Patient does not want to talk about his mother. Patient has 3 brothers and 4 sisters with no major medical problems. General Exam Limitations: no limitations General appearance: alert, in no apparent distress Head exam: Present: atraumatic, normocephalic, normal inspection Neck exam: Present: normal inspection, full ROM. Absent: tenderness, meningismus, lymphadenopathy Respiratory exam: Present: normal lung sounds bilaterally. Absent: respiratory distress, wheezes, rales, rhonchi, stridor Cardiovascular Exam: Present: regular rate, normal rhythm, normal heart sounds. Absent: systolic murmur, diastolic murmur, rubs, gallop, clicks Extremities exam: Present: other (Right hand environment artist strength equal 5/5 regular left, radial pulses equal bilaterally, and Reflux 2 seconds patient has tenderness over the ulnar aspect.) Course Vital Signs 01/21/22 09:38 Temperature 98.0 F Pulse Rate 75 Respiratory 20 Rate Blood Pressure 120/79 O2 Sat by Pulse 97 Oximetry Medical Decision Making - Medical Decision Making x-rays are negative for acute fracture. This does appear to be related to nerve versus ligament injury, tendinitis patient we discharged in stable condition return parameters were discussed. Disposition Clinical Impression: Right wrist pain Disposition: HOME SELF-CARE Condition: Stable Instructions (If sedation given, give patient instructions): Wrist Injury (ED) Additional Instructions: Please return to the Emergency Department if symptoms worsen or any other concerns. Prescriptions: Ibuprofen [Motrin] 600 mg PO Q8HR PRN #20 tab PRN Reason: Pain Is patient prescribed a controlled substance at d/c from ED?: No Referrals: None,Stated [Primary Care Provider] - 1-2 days Kev Winchester DO [Doctor of Osteopathic Medicine] - 1-2 days Time of Disposition: 11:18
--- NOTE | 2022-01-21 18:52 | XR ---
EXAM: XR Right Wrist Complete, 3 or More Views CLINICAL HISTORY: ITS. REASON XR Reason: pain TECHNIQUE: Frontal, lateral and oblique views of the right wrist. COMPARISON: No relevant prior studies available. FINDINGS: Bones/joints: Unremarkable. No acute fracture. No dislocation. Soft tissues: Unremarkable. No radiopaque foreign body. IMPRESSION: Normal right wrist x-rays.
== END 2022-01-21 11:58 | disposition home or self-care (01) ==
LOC: EC 09:25
DX: M25.531 Pain in right wrist (principal); F17.290 Nicotine dependence, other tobacco product, uncomplicated
CPT/HCPCS: 99283

== ENCOUNTER 2024-03-28 07:48 | Emergency (ER) | payer OTHER ==
[2024-03-28 07:55] VITALS: TEMP 97.9
--- NOTE | 2024-03-28 08:16 | ED ---
General Adult HPI - General Chief complaint: Abdominal Pain Stated complaint: R side pain Time Seen by Provider: 03/28/24 08:00 Source: patient, RN notes reviewed, old records reviewed Mode of arrival: ambulatory Limitations: no limitations - History of Present Illness Initial comments: This is a 29-year-old male who presents to the emergency department complaining of right flank pain. Patient states that started suddenly at 6 AM this morning. Patient states he is not experience this before. Patient denies any history of kidney stone. Patient denies any fever chills. Patient has any dysuria hematuria urinary frequency. Patient states he does notice that his urine is much darker though. Patient denies any vomiting or diarrhea. Patient Nuys any chest pain palpitations difficulty breathing shortness of breath. Patient states pushing on his abdomen does not make the pain worse. - Related Data Home Medications Medication Instructions Recorded Confirmed ISOtretinoin [Zenatane] 30 mg PO DAILY@1730 03/28/24 03/28/24 Previous Rx's Medication Instructions Recorded Ketorolac [Toradol] 10 mg PO Q8HR #15 tab 03/28/24 Tamsulosin [Flomax] 0.4 mg PO DAILY #10 cap 03/28/24 Allergies Allergy/AdvReac Type Severity Reaction Status Date / Time No Known Allergies Allergy Verified 03/28/24 09:04 Review of Systems ROS Statement: Those systems with pertinent positive or pertinent negative responses have been documented in the HPI. ROS Other: All systems not noted in ROS Statement are negative. Past Medical History Past Medical History: No Reported History Additional Past Medical History / Comment(s): Plantar fibroma History of Any Multi-Drug Resistant Organisms: None Reported Past Surgical History: Appendectomy, Orthopedic Surgery Additional Past Surgical History / Comment(s): testicular surgery Past Anesthesia/Blood Transfusion Reactions: No Reported Reaction Past Psychological History: Anxiety, Bipolar, Depression Smoking Status: Current every day smoker, Vaper Past Alcohol Use History: Occasional Past Drug Use History: Marijuana - Past Family History Father Additional Family Medical History / Comment(s): Father is alive at age 58 with history of kidney stones and low blood sugar Mother Family Medical History: Unable to Obtain Additional Family Medical History / Comment(s): Patient does not want to talk about his mother. Patient has 3 brothers and 4 sisters with no major medical problems. General Exam - General Exam Comments Initial Comments: GENERAL: Patient is well-developed and well-nourished. Patient is nontoxic and well- hydrated and is in moderate distress. ENT: Neck is soft and supple. No significant lymphadenopathy is noted. Oropharynx is clear. Moist mucous membranes. Neck has full range of motion without eliciting any pain. EYES: The sclera were anicteric and conjunctiva were pink and moist. Extraocular movements were intact and pupils were equal round and reactive to light. Eyelids were unremarkable. PULMONARY: Unlabored respirations. Good breath sounds bilaterally. No audible rales rhonchi or wheezing was noted. CARDIOVASCULAR: There is a regular rate and rhythm without any murmurs gallops or rubs. ABDOMEN: Soft and nontender with normal bowel sounds. SKIN: Skin is clear with no lesions or rashes and otherwise unremarkable. NEUROLOGIC: Patient is alert and oriented x3. Cranial nerves II through XII are grossly intact. Motor and sensory are also intact. Normal speech, volume and content. Symmetrical smile. MUSCULOSKELETAL: Normal extremities with adequate strength and full range of motion. Patient has mild right-sided CVA tenderness LYMPHATICS: No significant lymphadenopathy is noted PSYCHIATRIC: Normal psychiatric evaluation. Limitations: no limitations Course Vital Signs 03/28/24 07:53 Temperature 97.9 F Pulse Rate 76 Respiratory 20 Rate Blood Pressure 150/97 O2 Sat by Pulse 97 Oximetry Medical Decision Making - Medical Decision Making Was pt. sent in by a medical professional or institution (MARIA ISABEL Chacon, MANAGEMENT PSYCHOLOGIST, urgent care, hospital, or jail...) When possible be specific @ -No Did you speak to anyone other than the patient for history (EMS, parent, family, police, friend...)? What history was obtained from this source @ -No Did you review nursing and triage notes (agree or disagree)? Why? @ -I reviewed and agree with nursing and triage notes Were old charts reviewed (outside hosp., previous admission, EMS record, old EKG, old radiological studies, urgent care reports/EKG's, jail records)? Report findings @ -No Differential Diagnosis? @ -Differential Abdominal Pain Men: Appendicitis, cholecystitis, diverticulosis, ischemic bowel, pancreatitis, hepatitis, UTI, gastroenteritis, AAA, incarcerated hernia, bowel obstruction, constipation, inflammatory bowel, hepatitis, peptic ulcer disease, splenic infarction, perforated viscus, testicular torsion, this is not meant to be an all-inclusive list EKG interpreted by me (3pts min.). @ -As above X-rays interpreted by me (1pt min.). @ -None done CT interpreted by me (1pt min.). @ -CT of the abdomen shows a 2 mm kidney stone with some mild hydronephrosis U/S interpreted by me (1pt. min.). @ -None done What testing was considered but not performed or refused? (CT, X-rays, U/S, labs)? Why? @ -None What meds were considered but not given or refused? Why? @ -None Did you discuss the management of the patient with other professionals (professionals i.e. Dr., PA, MANAGEMENT PSYCHOLOGIST, lab, RT, psych nurse, healthcare social worker, health/safety job titles, teacher, president and chief executive officer, case assembler)? Give summary @ -No Was smoking cessation discussed for >3mins.? @ -No Was critical care preformed (if so, how long)? @ -No Were there social determinants of health that impacted care today? How? (Homelessness, low income, unemployed, alcoholism, drug addiction, transportation, low edu. Level, literacy, decrease access to med. care, [facility], rehab)? @ -No Was there de-escalation of care discussed even if they declined (Discuss DNR or withdrawal of care, Hospice)? DNR status @ -No What co-morbidities impacted this encounter? (DM, HTN, Smoking, COPD, CAD, Cancer, CVA, ARF, Chemo, Hep., AIDS, mental health diagnosis, sleep apnea, morbid obesity)? @ -None Was patient admitted / discharged? Hospital course, mention meds given and route, prescriptions, significant lab abnormalities, going to OR and other pertinent info. @ -Patient was given Toradol for pain and he was feeling considerably better on discharge. CAT scan did show a kidney stone Undiagnosed new problem with uncertain prognosis? @ -No Drug Therapy requiring intensive monitoring for toxicity (Heparin, Nitro, Insulin, Cardizem)? @ -No Were any procedures done? @ -No Diagnosis/symptom? @ -Kidney stone Acute, or Chronic, or Acute on Chronic? @ -Acute Uncomplicated (without systemic symptoms) or Complicated (systemic symptoms)? @ -Complicated Side effects of treatment? @ -No Exacerbation, Progression, or Severe Exacerbation? @ -No Poses a threat to life or bodily function? How? (Chest pain, [place], [place], pneumonia, PE, COPD, DKA, ARF, appy, cholecystitis, CVA, Diverticulitis, Homicidal, Suicidal, threat to staff... and all critical care pts) @ -No - Lab Data Result diagrams: 03/28/24 08:29 03/28/24 08:29 Lab Results 03/28/24 03/28/24 03/28/24 Range/Units 08:29 08:29 08:29 WBC 7.2 (3.8-10.6) k/uL RBC 5.68 (4.30-5.90) m/uL Hgb 17.4 (13.0-17.5) gm/dL Hct 51.2 (39.0-53.0) % MCV 90.1 (80.0-100.0) fL MCH 30.6 (25.0-35.0) pg MCHC 34.0 (31.0-37.0) g/dL RDW 13.2 (11.5-15.5) % Plt Count 228 (150-450) k/uL MPV 8.1 Neutrophils % 48 % Lymphocytes % 39 % Monocytes % 5 % Eosinophils % 5 % Basophils % 1 % Neutrophils # 3.4 (1.3-7.7) k/uL Lymphocytes # 2.8 (1.0-4.8) k/uL Monocytes # 0.3 (0-1.0) k/uL Eosinophils # 0.4 (0-0.7) k/uL Basophils # 0.1 (0-0.2) k/uL Sodium 141 (137-145) mmol/L Potassium 4.8 (3.5-5.1) mmol/L Chloride 108 H (98-107) mmol/L Carbon Dioxide 24 (22-30) mmol/L Anion Gap 9 mmol/L BUN 13 (9-20) mg/dL Creatinine 0.87 (0.66-1.25) mg/dL Est GFR (CKD-EPI)AfAm >90 (>60 ml/min/1.73 sqM) Est GFR (CKD-EPI)NonAf >90 (>60 ml/min/1.73 sqM) Glucose 113 H (74-99) mg/dL Calcium 9.8 (8.4-10.2) mg/dL Total Bilirubin 0.9 (0.2-1.3) mg/dL AST 44 (17-59) U/L ALT 62 H (4-49) U/L Alkaline Phosphatase 86 (38-126) U/L Total Protein 8.3 H (6.3-8.2) g/dL Albumin 5.0 (3.5-5.0) g/dL Amylase 63 (30-110) U/L Lipase 59 (23-300) U/L Urine Color Red Urine Appearance Cloudy (Clear) Urine pH 5.5 (5.0-8.0) Ur Specific [place] 1.026 (1.001-1.035) Urine Protein 1+ H (Negative) Urine Glucose (UA) Negative (Negative) Urine Ketones Negative (Negative) Urine Blood Large H (Negative) Urine Nitrite Negative (Negative) Urine Bilirubin Negative (Negative) Urine Urobilinogen <2.0 (<2.0) mg/dL Ur Leukocyte Esterase Trace H (Negative) Urine RBC >182 H (0-5) /hpf Urine WBC 4 (0-5) /hpf Urine Mucus Few H (None) /hpf Disposition Clinical Impression: Kidney stone on right side Disposition: HOME SELF-CARE Condition: Good Instructions (If sedation given, give patient instructions): Kidney Stones (ED) Prescriptions: Tamsulosin [Flomax] 0.4 mg PO DAILY #10 cap Ketorolac [Toradol] 10 mg PO Q8HR #15 tab Is patient prescribed a controlled substance at d/c from ED?: No Referrals: Melly Tate MD [STAFF PHYSICIAN] - 1-2 days Time of Disposition: 09:14
[2024-03-28] MEDS: SODIUM CHLORIDE 0.9% 1,000 ML IV STA (08:24)
[2024-03-28] MEDS: KETOROLAC 15 MG/ML 1 ML VIAL IVP STA (08:25)
[2024-03-28] MEDS: ONDANSETRON 4 MG/2 ML VIAL IVP STA (08:25)
--- NOTE | 2024-03-28 08:38 | CT ---
EXAMINATION TYPE: CT abdomen pelvis wo con DATE OF EXAM: 03/28/2024 8:30 AM COMPARISON: CT abdomen pelvis most recent from 10/01/2014 CLINICAL INDICATION: Male, 29 years old with history of abdominal pain; Rt flank pain TECHNIQUE: Axial CT abdomen pelvis wo con;Sagittal and coronal reformats were created on a separate workstation. Contrast used: mL of , (none if empty) Oral contrast used: without Oral Contrast (none if empty) CT DLP: 572.8 mGycm, Automated exposure control for dose reduction was used. FINDINGS: LOWER CHEST: Unremarkable ABDOMEN LIVER: Unremarkable GALLBLADDER AND BILE DUCTS: Unremarkable. PANCREAS: Unremarkable. SPLEEN: Unremarkable. ADRENAL GLANDS: Unremarkable. KIDNEYS AND URETERS: Mild right hydronephrosis secondary obstructing 2 mm calculus at the ureteral pe lvic junction. 2 mm left nonobstructing calculus. No additional right calculi. PELVIS BLADDER: No evidence for wall thickening or mass given limitations of exam. REPRODUCTIVE: Unremarkable. ABDOMEN & PELVIS STOMACH AND BOWEL: No evidence of bowel obstruction. The appendix is not definitively visualized PERITONEUM/RETROPERITONEUM: No evidence of pneumoperitoneum or free fluid. VASCULATURE: No evidence of aortic aneurysm. MUSCULOSKELETAL: No acute osseous abnormalities LYMPH NODES: No gross evidence for lymphadenopathy. SOFT TISSUE/ABDOMINAL WALL: Left fat-containing inguinal hernia. Small fat-containing buccal hernia. IMPRESSION: 1. Mild right hydronephrosis secondary obstructing 2 mm calculus at the ureteral pelvic junction. Ad ditional 2 mm left nonobstructing calculus. 2. The appendix is not visualized and may be surgically absent. [facility], , 03/28/2024 8:35 AM
[2024-03-28 08:43] LABS: Basophils # (A) 0.1 k/uL (0-0.2); Basophils % (A) 1 %; Eosinophils # (A) 0.4 k/uL (0-0.7); Eosinophils % (A) 5 %; HCT 51.2 % (39.0-53.0); HGB 17.4 gm/dL (13.0-17.5); Lymphocytes # (A) 2.8 k/uL (1.0-4.8); Lymphocytes % (A) 39 %; MCH 30.6 pg (25.0-35.0); MCV 90.1 fL (80.0-100.0); Mean Platelet Volume 8.1; Monocytes # (A) 0.3 k/uL (0-1.0); Monocytes % (A) 5 %; Neutrophils # (A) 3.4 k/uL (1.3-7.7); Neutrophils % (A) 48 %; Platelet Count 228 k/uL (150-450); RBC 5.68 m/uL (4.30-5.90); RDW 13.2 % (11.5-15.5); WBC 7.2 k/uL (3.8-10.6)
[2024-03-28 08:50] LABS: Appearance,Urine Cloudy (Clear); Bilirubin,Urine Negative (Negative); Blood,Urine Large (Negative); Color,Urine Red; Glucose,Urine (UA) Negative (Negative); Ketones,Urine Negative (Negative); Leukocyte Esterase,Urine Trace (Negative); Mucus,Urine Few /hpf; Nitrite,Urine Negative (Negative); PH, Urine 5.5 (5.0-8.0); Protein,Urine 1+ (Negative); RBC,Urine >182 /hpf (0-5); Specific Gravity,Urine 1.026 (1.001-1.035); Urobilinogen,Urine <2.0 mg/dL (<2.0); WBC,Urine 4 /hpf (0-5)
[2024-03-28 08:57] LABS: ALT 62 U/L (4-49); AST 44 U/L (17-59); African American GFR (CKD) >90 (>60 ml/min/1.73 sqM); Alkaline Phosphatase 86 U/L (38-126); Amylase 63 U/L (30-110); Anion Gap 9 mmol/L; Blood Urea Nitrogen 13 mg/dL (9-20); Calcium 9.8 mg/dL (8.4-10.2); Carbon Dioxide 24 mmol/L (22-30); Chloride 108 mmol/L (98-107); Glucose 113 mg/dL (74-99); Lipase 59 U/L (23-300); Non-African American GFR(CKD) >90 (>60 ml/min/1.73 sqM); Potassium 4.8 mmol/L (3.5-5.1); Sodium 141 mmol/L (137-145); Total Bilirubin 0.9 mg/dL (0.2-1.3); Total Protein 8.3 g/dL (6.3-8.2)
[2024-03-28 09:38] VITALS: BP 118/83; PULSE 59; RESP 15
[2024-03-28] MEDS: ACET/COD 300 MG/30 MG STARTER PACK 6 TAB BTL PO STA (09:42)
== END 2024-03-28 09:47 | disposition home or self-care (01) ==
LOC: EC 07:48
DX: N13.2 Hydronephrosis with renal and ureteral calculous obstruction (principal); F17.290 Nicotine dependence, other tobacco product, uncomplicated
CPT/HCPCS: 96361 ×2; 96374 ×2; 96375 ×2; 99284 ×3; 36415; 80053; 82150; 83690; 85025; 81001; 74176; J2405; J1885